=== PATIENT | male | born 1985 | race Caucasian/White ===

== ENCOUNTER 2016-08-21 20:08 | Emergency (ER) | payer BC ==
[~2016-08-21] VITALS: Ht 198.1 cm; Wt 136.1 kg
[2016-08-21 21:26] LABS: Basophils # (auto) 0.1 uL; Basophils % (auto) 0.7 % (0.0-2.0); Eosinophils # (auto) 0.3 uL; Eosinophils % (auto) 3.5 % (0.0-7.0); Hematocrit 47.7 % (41.0-53.0); Hemoglobin 15.8 g/dL (13.5-17.5); Lymphocytes # (auto) 2.9 uL; Mean Corpuscular Hemoglobin 30.3 pg (28.0-32.0); Mean Corpuscular Hgb Conc. 33.1 g/dL (32.0-36.0); Mean Corpuscular Volume 91.6 fL (80.0-100.0); Monocytes # (auto) 0.7 uL; Monocytes % (auto) 7.1 % (0.0-12.0); Neutrophils % (auto) 59.7 % (37.0-80.0); Platelet Count (auto) 350 10^3/uL (140-450)
[2016-08-21 21:29] LABS: Albumin 3.7 g/dL (3.4-5.0); BUN/Creatinine Ratio 10.8; Bilirubin, Total 0.5 mg/dL (0.2-1.0); Calcium 8.7 mg/dL (8.5-10.1); Potassium 3.6 mmol/L (3.5-5.1); Total Protein 7.7 g/dL (6.4-8.2)
[2016-08-21 21:38] LABS: INR 0.96 (0.9-1.15); Prothrombin Time 9.9 sec (9.37-12.3)
[2016-08-22] MEDS ORDERED: ONDANSETRON HCL 4 MG/2 ML VIAL IV ONE (03:00)
[2016-08-22] MEDS ORDERED: HYDROmorphone HCL 2 MG/ML VL IV ONE (03:00)
[2016-08-22] MEDS ORDERED: metroNIDAZOLE 500 MG TAB PO ONE (03:00)
[2016-08-22 03:53] LABS: Urine RBC None Seen /hpf (0 - 3)
[2016-08-22 04:04] LABS: Urine Bilirubin Negative (Negative); Urine Blood Negative /uL (Negative); Urine Color Yellow (Yellow); Urine Glucose Normal (Normal); Urine Ketone Negative (Negative); Urine Mucus FEW (None Seen); Urine Nitrite Negative (Negative); Urine Urobilinogen Normal (Negative); Urine pH 5.5 (5.0-8.0)
[2016-08-22 04:13] VITALS: BP 89/43
== END 2016-08-22 04:56 | disposition home or self-care (01) ==
LOC: ER 20:15
DX: K50.90 Crohn's disease, unspecified, without complications (principal); K76.0 Fatty (change of) liver, not elsewhere classified
CPT/HCPCS: 36415; 71010; 74176; 80053; 81001; 82150; 83690; 84484; 85025; 85610; 85730; 93005; 96374; 96375; 99285; G0434; J1170; J2405

== ENCOUNTER 2019-01-28 19:02 | Inpatient (IN) | payer BC ==
[~2019-01-28] VITALS: Ht 198.1 cm; Wt 133.4 kg
[2019-01-28] MEDS ORDERED: predniSONE 20 MG TAB PO ONE (23:00)
[2019-01-28] MEDS ORDERED: MORPHINE SULF INJ 2 MG/ML SYRINGE 1ML IV PRN ×2 (23:00)
[2019-01-28] MEDS ORDERED: HYDROcodone-ACET 5/325MG TAB PO PRN (23:00)
[2019-01-28] MEDS ORDERED: PANTOPRAZOLE 40 MG TAB PO ONE (23:00)
[2019-01-28] MEDS ORDERED: NITROGLYCERIN 0.4 MG SL TAB SL PRN (23:00)
[2019-01-28 23:22] VITALS: BP 133/85
[2019-01-28] MEDS: SODIUM CHLORIDE 0.9% 1,000 ML IV SCH (23:49)
[2019-01-28] MEDS: ONDANSETRON HCL 4 MG/2 ML VIAL IV PRN (23:58)
[2019-01-29 05:08] VITALS: BP 98/38
[2019-01-29 07:01] LABS: Albumin 3.8 g/dL (3.4-5.0); Calcium 9.1 mg/dL (8.5-10.1); Potassium 4.5 mmol/L (3.5-5.1)
[2019-01-29 07:02] LABS: INR 0.95 (0.9-1.15); Partial Thromboplastin Time 25.8 sec (23.64-32.05)
[2019-01-29 07:05] LABS: BUN/Creatinine Ratio 15.6; Basophils # (auto) 0 uL; Basophils % (auto) 0.1 % (0.0-2.0); Bilirubin, Total 1.5 mg/dL (0.2-1.0); Eosinophils # (auto) 0 uL; Eosinophils % (auto) 0.1 % (0.0-7.0); Hematocrit 45.4 % (41.0-53.0); Hemoglobin 15.5 g/dL (13.5-17.5); Lymphocytes # (auto) 0.7 uL; Lymphocytes % (auto) 7.2 % (10.0-50.0); Mean Corpuscular Hemoglobin 32.1 pg (28.0-32.0); Mean Corpuscular Hgb Conc. 34.2 g/dL (32.0-36.0); Mean Corpuscular Volume 93.9 fL (80.0-100.0); Monocytes # (auto) 0.1 uL; Monocytes % (auto) 0.9 % (0.0-12.0); Neutrophils # (auto) 9.5 uL; Neutrophils % (auto) 91.7 % (37.0-80.0); Platelet Count (auto) 258 10^3/uL (140-450); Red Blood Cells 4.83 10^6/uL (4.5-5.90); Red Cell Distribution Width 12.9 % (11.8-14.3); Total Protein 7.5 g/dL (6.4-8.2); White Blood Cell 10.3 10^3/uL (4.4-10.8)
[2019-01-29] MEDS ORDERED: GASTROGRAFIN 120 ML SOL ONE (08:00)
[2019-01-29 09:00] VITALS: BP 128/78
[2019-01-29] MEDS ORDERED: predniSONE 20 MG TAB PO SCH (10:00)
[2019-01-29] MEDS ORDERED: PANTOPRAZOLE 40 MG TAB PO SCH (10:00)
[2019-01-29] MEDS: ONDANSETRON HCL 4 MG/2 ML VIAL IV PRN (10:56)
[2019-01-29] MEDS: SODIUM CHLORIDE 0.9% 1,000 ML IV SCH ×2 (11:02→19:00)
[2019-01-29] MEDS ORDERED: MEPERIDINE HCL (50 MG/ML) 1 ML VIAL IM PRN (12:15)
[2019-01-29] MEDS: DICYCLOMINE HCL 10 MG CAP PO SCH ×2 (12:46→19:35)
[2019-01-29 12:48] VITALS: BP 119/68
[2019-01-29 17:00] VITALS: BP 123/66
[2019-01-29 20:03] VITALS: BP 123/66
== END 2019-01-29 20:53 | disposition home or self-care (01) | DRG 386 ==
LOC: TELE-WESTW 22:25
PROVIDERS: ADMIT Internal Medicine; ATTEND Internal Medicine
DX: K50.10 Crohn's disease of large intestine without complications (principal); N17.9 Acute kidney failure, unspecified; K62.5 Hemorrhage of anus and rectum; J45.909 Unspecified asthma, uncomplicated; Z80.8 Family history of malignant neoplasm of other organs or systems; Z83.3 Family history of diabetes mellitus; Z79.899 Other long term (current) drug therapy
CPT/HCPCS: 36415; 74250; 80053; 85025; 85048; 85610; 85652; 85730; 87045; 87493; 87899; G0378; J2405

== ENCOUNTER 2019-04-24 13:19 | Inpatient (IN) | payer BC ==
[~2019-04-24] VITALS: Ht 195.6 cm; Wt 127.0 kg
[2019-04-24] MEDS ORDERED: SODIUM CHLORIDE 0.9% 1,000 ML IVB ONE (13:28)
[2019-04-24] MEDS ORDERED: ONDANSETRON HCL 4 MG/2 ML VIAL IV ONE (13:30)
[2019-04-24] MEDS ORDERED: MORPHINE SULF INJ 2 MG/ML SYRINGE 1ML IV ONE ×2 (13:30→14:00)
[2019-04-24] MEDS ORDERED: PANTOPRAZOLE 40 MG/10 ML VIAL INJ IV ONE (13:30)
[2019-04-24 13:48] LABS: Basophils # (auto) 0.1 uL; Basophils % (auto) 1.2 % (0.0-2.0); Eosinophils # (auto) 0.8 uL; Eosinophils % (auto) 7.9 % (0.0-7.0); Hematocrit 44.1 % (41.0-53.0); Hemoglobin 15.9 g/dL (13.5-17.5); Lymphocytes # (auto) 2.6 uL; Lymphocytes % (auto) 27.9 % (10.0-50.0); Mean Corpuscular Hgb Conc. 36.1 g/dL (32.0-36.0); Mean Corpuscular Volume 91.3 fL (80.0-100.0); Monocytes # (auto) 0.6 uL; Monocytes % (auto) 6.3 % (0.0-12.0); Neutrophils # (auto) 5.4 uL; Neutrophils % (auto) 56.7 % (37.0-80.0); Nucleated Red Blood Cells % 0.1 %; Platelet Count (auto) 280 10^3/uL (140-450); Red Blood Cells 4.83 10^6/uL (4.5-5.90); Red Cell Distribution Width 12.9 % (11.8-14.3); White Blood Cell 9.5 10^3/uL (4.4-10.8)
[2019-04-24 14:04] LABS: Albumin 3.9 g/dL (3.4-5.0); Calcium 8.6 mg/dL (8.5-10.1); Magnesium 2.3 mg/dL (1.6-2.6)
[2019-04-24] MEDS ORDERED: HYDROmorphone HCL 2 MG/ML VL ONE (14:09)
[2019-04-24 14:13] LABS: INR < 0.93 (0.9-1.15); Partial Thromboplastin Time 24.5 sec (23.64-32.05)
[2019-04-24 14:14] LABS: Bilirubin, Total 0.8 mg/dL (0.2-1.0); Total Protein 7.7 g/dL (6.4-8.2)
[2019-04-24] MEDS ORDERED: HYDROmorphone HCL 2 MG/ML VL IV ONE (14:15)
[2019-04-24 15:53] LABS: Urine WBC None Seen /hpf (0 - 3)
[2019-04-24 16:05] LABS: Urine Bacteria NONE SEEN /hpf (None Seen); Urine Blood Negative /uL (Negative); Urine Specific Gravity 1.013 (1.001-1.035)
[2019-04-24] MEDS ORDERED: MORPHINE SULF INJ 2 MG/ML SYRINGE 1ML IV PRN (17:15)
[2019-04-24] MEDS ORDERED: NITROGLYCERIN 0.4 MG SL TAB SL PRN (17:15)
[2019-04-24] MEDS ORDERED: methylPREDNISolone SOD SUCC 125 MG/2 ML VL IV SCH (17:15)
[2019-04-24] MEDS: HYDROmorphone HCL 2 MG/ML VL IV PRN ×2 (17:59→22:15)
[2019-04-24] MEDS: ONDANSETRON HCL 4 MG/2 ML VIAL IV PRN ×2 (17:59→23:02)
[2019-04-24 18:30] VITALS: BP 124/98
[2019-04-24] MEDS: SODIUM CHLORIDE 0.9% 1,000 ML IV SCH (18:30)
--- NOTE | 2019-04-24 18:30 | NUR ---
MS admit from ER JONELLE CENTENO admitted to tele/MS after SBAR received. Patient oriented to Isaura Hoskins, primary RN, unit, room, bed, and unit policies regarding patient care and visiting hours. Patient weighed by bedscale and encouraged to call if they need something. All questions and concerns addressed, patient verbalized understanding. IV fluids started as ordered. Patient denies need for pain meds at this time states tolerable pain level. Patient denies n/v. Will cont to monitor
[2019-04-24] MEDS: FAMOTIDINE (10MG/ML) 2ML VL IV SCH (21:31)
[2019-04-24] MEDS ORDERED: DICY10CA12 PO (21:47)
[2019-04-24 22:00] VITALS: BP 126/75
[2019-04-25] MEDS: HYDROmorphone HCL 2 MG/ML VL IV PRN ×2 (02:10→10:58)
[2019-04-25 05:00] VITALS: BP 125/70
[2019-04-25] MEDS: SODIUM CHLORIDE 0.9% 1,000 ML IV SCH ×3 (05:03→23:56)
[2019-04-25 06:10] LABS: Basophils # (auto) 0 uL; Basophils % (auto) 0.1 % (0.0-2.0); Eosinophils # (auto) 0 uL; Hematocrit 44.2 % (41.0-53.0); Hemoglobin 15.3 g/dL (13.5-17.5); Lymphocytes # (auto) 0.8 uL; Lymphocytes % (auto) 7.9 % (10.0-50.0); Mean Corpuscular Hemoglobin 32.8 pg (28.0-32.0); Mean Corpuscular Hgb Conc. 34.6 g/dL (32.0-36.0); Mean Corpuscular Volume 94.8 fL (80.0-100.0); Monocytes # (auto) 0.1 uL; Platelet Count (auto) 257 10^3/uL (140-450); Red Blood Cells 4.66 10^6/uL (4.5-5.90); Red Cell Distribution Width 12.5 % (11.8-14.3); White Blood Cell 9.9 10^3/uL (4.4-10.8)
[2019-04-25 06:23] LABS: Albumin 3.5 g/dL (3.4-5.0); BUN/Creatinine Ratio 15.2; Calcium 8.7 mg/dL (8.5-10.1); Potassium 4.3 mmol/L (3.5-5.1)
[2019-04-25 06:26] LABS: Bilirubin, Total 0.9 mg/dL (0.2-1.0); Total Protein 7.2 g/dL (6.4-8.2)
--- NOTE | 2019-04-25 08:00 | NUR ---
Opening Shift Note Assumed care of patient, awake, alert and oriented X4. No S/S of distress/SOB or pain. IV to left hand, 18 gauge, patent and infusing 0.9% NS @ 100 ml/hr. Instructed on POC and to call for assist PRN, verbalized understanding. Bed locked, n lowest position, call light within reach, will continue to monitor for changes Q1hr and PRN.
[2019-04-25 09:00] VITALS: BP 121/74
[2019-04-25] MEDS ORDERED: LACTULOSE 20Gm/30ML SOLN PO PRN (10:30)
[2019-04-25] MEDS: FAMOTIDINE (10MG/ML) 2ML VL IV SCH ×2 (10:58→21:51)
--- NOTE | 2019-04-25 11:28 | NUR ---
GI Dr Quezada at bedside for GI follow up. New orders received and followed through. Patient updated on plan of care, verbalized understanding.
[2019-04-25 13:00] VITALS: BP 141/88
[2019-04-25 17:00] VITALS: BP 120/66
--- NOTE | 2019-04-25 17:53 | NUR ---
ROUNDS Dr Dustin Romero at bedside for rounds, new orders received and followed through. Patient updated on plan of care, verbalized understanding.
[2019-04-25] MEDS ORDERED: HYDROcodone-ACET 5/325MG TAB PO PRN (18:00)
[2019-04-25] MEDS ORDERED: HYDROCORTISONE SOD SUCC 100 MG/2ML INJ VIAL IV ONE (18:00)
[2019-04-25] MEDS ORDERED: HYDROmorphone HCL 2 MG/ML VL IV PRN (18:00)
--- NOTE | 2019-04-25 19:11 | NUR ---
Care endorsed to ASIF Zurita, night nurse.
[2019-04-25] MEDS: HYDROCORTISONE SOD SUCC 100 MG/2ML INJ VIAL IV SCH (21:51)
[2019-04-25 22:21] VITALS: BP 146/98
[2019-04-26 05:23] VITALS: BP 120/56
--- NOTE | 2019-04-26 08:00 | NUR ---
Opening Shift Note Assumed care of patient, awake, alert and oriented X4. No S/S of distress/SOB, complains abdominal pain, /, will medicate with prescribed pain medication. IV to left hand, 18 gauge, patent and infusing 0.9% NS @ 100 ml/hr. Instructed on POC and to call for assist PRN, verbalized understanding. Bed locked, n lowest position, call light within reach, will continue to monitor for changes Q1hr and PRN.
[2019-04-26] MEDS: ONDANSETRON HCL 4 MG/2 ML VIAL IV PRN (08:33)
[2019-04-26 08:42] VITALS: BP 138/86
[2019-04-26] MEDS: HYDROCORTISONE SOD SUCC 100 MG/2ML INJ VIAL IV SCH (10:41)
[2019-04-26] MEDS: FAMOTIDINE (10MG/ML) 2ML VL IV SCH (10:41)
--- NOTE | 2019-04-26 12:19 | NUR ---
ROUNDS Dr Dustin Romero at bedside for rounds, new orders received and followed through. Patient updated on plan of care, verbalized understanding.
[2019-04-26] MEDS ORDERED: HYDR-4833 PO (12:44)
[2019-04-26] MEDS ORDERED: PRE5T PO (12:44)
[2019-04-26 13:00] VITALS: BP 142/70
--- NOTE | 2019-04-26 14:47 | NUR ---
D/C Planning Per consult for home health safety evaluation. Contacted [facility] ph:) Fax:) Faxed medical records. Per Darcie from [facility] Pt has been accepted and service to start within 48 hrs upon d/c day. Contacted [facility] ph:) Fax:) spoke to MAURICIO Sun. Advised MAURICIO Sun to provided authorization to [facility]. Addendum: 04/26/19 at 1452 by SUZY DOMINGUEZ Amended: Links added.
--- NOTE | 2019-04-26 15:50 | NUR ---
d/c Planning Authorization # for [facility] is [id number].
== END 2019-04-26 14:45 | disposition home health service (06) | DRG 387 ==
LOC: ER 13:19 → TELE 13:20 → TELE-WESTW 18:06 → WEST WING 23:13
PROVIDERS: ADMIT Nurse Practitioner Acute Care; ATTEND Internal Medicine
DX: K51.911 Ulcerative colitis, unspecified with rectal bleeding (principal); E66.9 Obesity, unspecified; Z68.33 Body mass index [BMI] 33.0-33.9, adult; G89.29 Other chronic pain; K59.00 Constipation, unspecified; K76.0 Fatty (change of) liver, not elsewhere classified; Z82.49 Family history of ischemic heart disease and other diseases of the circulatory system; Z83.3 Family history of diabetes mellitus; Z85.038 Personal history of other malignant neoplasm of large intestine; Z90.49 Acquired absence of other specified parts of digestive tract
CPT/HCPCS: 36415; 74176; 80053; 81001; 82150; 83690; 83735; 85025; 85610; 85730; 94761; 96361; 96374; 96375; C9113; G0378; J2405; J3490

== ENCOUNTER 2024-06-13 18:20 | Inpatient (IN) | payer BC ==
[~2024-06-13] VITALS: Ht 198.1 cm; Wt 91.2 kg
[~2024-06-13 18:20] MED LIST: BUDE0.5S PO; DICY-89 PO; HYDR-4833 PO; MESA1.2T PO; PANT40TA2 PO; PRE5T PO
--- NOTE | 2024-06-13 18:37 | ED.PDOC ---
GI ASSESSMENT HPI Comments 39-year-old male who came to ER for GI bleed. Patient does have history of Crohn's disease. States last flare-up was 2 years ago. Since last night, patient has been experiencing left lower quadrant abdominal pain, radiating down his left leg, associated with nausea, vomiting (4-5x), and bright red rectal bleeding. Patient complaining of fever, headaches, generalized muscle and joint pains, right inguinal pain. Patient feels like he is having another flare up. Chief Complaint: GI bleed Time Seen by MD: 18:37 Primary Care Provider: REY Reviewed Notes: Nurses Notes Allergies: Coded Allergies: NO KNOWN ALLERGIES (Unverified , 03/12/15) Home Meds Active Scripts Budesonide (Inhalation) (Budesonide) 0.5 Mg/2 Ml Heather, 9 MG PO DAILY, #30 ML Prov:EDMUNDO MICHAEL MD 04/08/22 Pantoprazole Sodium Sesquihydr (Protonix) 40 Mg Tab, 40 MG PO DAILY, #30 TAB Prov:MASON BHAT MD 03/09/22 Mesalamine (Lialda) 1.2 Gm Tab, 2 TAB PO DAILY, #30 TAB Prov:MASON BHAT MD 03/09/22 Hydrocodone-Acetaminophen ([place] 5/325MG) 1 Tab Tb, 2 TAB PO Q4HP PRN, #24 TAB Prov:FLORA MICHAEL MD 04/26/19 Prednisone (PREDNISONE) 5 Mg Tb, 40 MG PO DAILY, #168 TAB Patient to take 40mg PO daily. Can substitute with 40mg tablet for 21 day supply. Prov:FLORA MICHAEL MD 04/26/19 Reported Medications Dicyclomine Hcl (Dicyclomine Hcl) 10 Mg Cap, PO Q4HP PRN for PAIN SCALE 1 THRU 6 for 30 Days, MG 04/24/19 Information Source: Patient Mode of Arrival: Ambulatory Timing: Hours Duration: Since onset Prehospital treatment: None Quality: Cramping, Sharp Vomitus: Watery Stool: Blood Streaked Severity: Moderate Recent: None Recent Hx of: Abdominal Surgery, Other (Crohn's disease) Pain Location: RLQ, LLQ Modifying Factors: Nothing Associated sign and symptoms: Nausea, Vomiting, Hematochezia, Abdominal Pain, Blood in Stool Past Medical History Past Medical History (Other): Crohn's disease Surgical History: Appendectomy Family History Family History: Family hx of DM, Family hx of HTN Social History Smoker: Non-Smoker Alcohol: Denies ETOH Use Drugs: Denies Drug Use Lives In: Home Constitutional: reports: malaise; denies: chills, diaphoresis, fatigue, fever, sweats, weakness, others EENTM: denies: blurred vision, double vision, ear bleeding, ear discharge, ear drainage, ear pain, ear ringing, eye pain, eye redness, hearing loss, mouth pain, mouth swelling, nasal discharge, nose bleeding, nose congestion, nose pain, photophobia, tearing, throat pain, throat swelling, voice changes, others Respiratory: denies: cough, hemoptysis, orthopnea, SOB at rest, shortness of breath, SOB with excertion, stridor, wheezing, others Cardiovascular: denies: chest pain, dizzy spells, diaphoresis, Dyspnea on exertion, edema, irregular heart beat, left arm pain, lightheadedness, palpitations, PND, syncope, others Gastrointestinal: reports: abdominal pain, blood streaked bowels, nausea, rectal bleeding, vomiting; denies: abdomen distended, constipated, diarrhea, dysphagia, difficulty swallowing, hematemesis, melena, poor appetite, poor fluid intake, rectal pain, others Genitourinary: denies: burning, dysuria, flank pain, frequency, hematuria, incontinence, penile discharge, penile sore, pain, testicle pain, testicle swelling, urgency, others Neurological: reports: headache; denies: dizziness, fainting, left sided numbness, left sided weakness, numbness, paresthesia, pre-existing deficit, right sided numbness, right sided weakness, seizure, speech problems, tingling, tremors, weakness, others Musculoskeletal: reports: muscle pain (Leg pain); denies: back pain, gout, joint pain, joint swelling, muscle stiffness, neck pain, others Integumetry: denies: bruises, change in color, change in hair/nails, dryness, laceration, lesions, lumps, rash, wounds, others Allergic/Immunocompromised: denies: Difficulty Healing, Frequent Infections, Hives, Itching, others Hematologic/Lymphatic: denies: anemia, blood clots, easy bleeding, easy bruising, swollen glands, others Endocrine: denies: excessive hunger, excessive sweating, excessive thirst, excessive urination, flushing, intolerance to cold, intolerance to heat, unexplained weight gain, unexplained weight loss, others Psychiatric: denies: anxiety, bipolar disorder, depression, hopeless, panic disorder, schizophrenia, sleepless, suicidal, others Physical Exam Exam Comments febrile, 101.6 General Appearance: Moderate Distress, Normal HEENT: Normal ENT Inspection, Pharynx Normal, TMs Normal Neck: Full Range of Motion, Non-Tender, Normal, Normal Inspection Respiratory: Chest Non-Tender, Lungs Clear, No Accessory Muscle Use, No Respiratory Distress, Normal Breath Sounds Cardiovascular: No Edema, No JVD, No Murmur, No Gallop, Normal Peripheral Pulses, Regular Rate/Rhythm Breast Exam: Deferred Gastrointestinal: Diffuse, Normal Bowel Sounds, Soft, Tenderness Genitalia: Deferred Pelvic: Deferred Rectal: Deferred Extremities: No calf tenderness, Normal capillary refill, Normal inspection, Normal range of motion, Non-tender, No pedal edema Musculoskeletal : Apperance: Normal Neurologic: Alert, applications programmer II-XII nml as Tested, No Motor Deficits, Normal Affect, Normal Mood, No Sensory Deficits Cerebellar Function: Normal Reflexes: Normal Skin: Dry, Normal Color, Warm Lymphatic: No Adenopathy Was a procedure done? Was a procedure done?: No GI differential Dx Differential Diagnosis: Diverticular disease, Gastritis/PUD, Gastroenteritis, GI hemorrhage, Pancreatitis, UTI, Anemia, Other (Crohn's disease) X-Ray, Labs, Meds, VS Vital Signs Date Time Temp Pulse Resp B/P (MAP) Pulse Ox O2 Delivery O2 Flow Rate FiO2 06/13/24 18:36 101.5 133 18 142/95 (111) 95 Lab Test 06/13/24 18:54 Range/Units White Blood Count 7.6 4.4-10.8 10^3/uL Red Blood Count 5.02 4.5-5.90 10^6/uL Hemoglobin 16.1 13.5-17.5 g/dL Hematocrit 47.0 41.0-53.0 % Mean Corpuscular Volume 93.6 80.0-100.0 fL Mean Corpuscular Hemoglobin 32.1 H 28.0-32.0 pg Mean Corpuscular Hemoglobin Concent 34.3 32.0-36.0 g/dL Red Cell Distribution Width 13.0 11.8-14.3 % Platelet Count 272 140-450 10^3/uL Mean Platelet Volume 7.6 6.9-10.8 fL Neutrophils (%) (Auto) 72.9 37.0-80.0 % Lymphocytes (%) (Auto) 14.7 10.0-50.0 % Monocytes (%) (Auto) 7.1 0.0-12.0 % Eosinophils (%) (Auto) 5.0 0.0-7.0 % Basophils (%) (Auto) 0.3 0.0-2.0 % Neutrophils # (Auto) 5.6 1.6-8.6 10 ^3/uL Lymphocytes # (Auto) 1.1 0.4-5.4 10 ^3/uL Monocytes # (Auto) 0.5 0-1.3 10 ^3/uL Eosinophils # (Auto) 0.4 0-0.8 10 ^3/uL Basophils # (Auto) 0 0-0.2 10 ^3/uL Nucleated Red Blood Cells 0.1 % Prothrombin Time 11.1 9.3-11.8 sec Prothrombin Time INR 1.05 0.9-1.15 Activated Partial Thromboplast Time 28.4 24.5-34.5 SEC Sodium Level 137 136-145 mmol/L Potassium Level 3.9 3.5-5.1 mmol/L Chloride Level 105 98-107 mmol/L Carbon Dioxide Level 25 20-31 mmol/L Anion Gap 7 5-15 Blood Urea Nitrogen 14 9-23 mg/dL Creatinine 1.10 0.700-1.30 mg/dL Glomerular Filtration Rate Calc 88 >90 mL/min BUN/Creatinine Ratio 12.7 10.0-20.0 Serum Glucose 99 74-106 mg/dL Lactic Acid Level 1.1 0.4-2.0 mmol/L Calcium Level 9.6 8.7-10.4 mg/dL Total Bilirubin 2.3 H 0.2-1.0 mg/dL Aspartate Amino Transferase (AST) 15 13-40 U/L Alanine Aminotransferase (ALT) 27 7-40 U/L Alkaline Phosphatase 63 46-116 U/L Total Protein 7.4 5.7-8.2 g/dL Albumin 4.5 3.2-4.8 g/dL Lipase 34 12-53 U/L Time of 1ST Reevaluation: 18:33 Reevaluation 1ST: Unchanged Patient Education/Counseling: Diagnosis, Treatment Family Education/Counseling: No Family Present Departure 1 Departure Time of Disposition: 22:07 Impression: Primary Impression: GI bleed Additional Impression: Crohn's disease Disposition: ADMITTED INPATIENT Condition: Guarded Critical Care Note Critical Care Time?: Yes (35 min-critical care time only) Stability Stability form required: No Heart Score Heart Score: Heart Score Response (Comments) Value History N/A 0 EKG N/A 0 Age N/A 0 Risk Factors N/A 0 Troponin N/A 0 Total 0 I personally scribed for MICHELLE ESCOBEDO MD ([email or web address]) on 06/13/24 at 18:37. Electronically submitted by Santos Calvillo ([facility]). I personally scribed for MICHELLE ESCOBEDO MD ([email or web address]) on 06/13/24 at 22:07. Electronically submitted by Santos Calvillo ([email or web address]). MICHELLE ESCOBEDO MD Jun 13, 2024 18:37
[2024-06-13 19:33] LABS: Basophils # (auto) 0 10 ^3/uL (0-0.2); Basophils % (auto) 0.3 % (0.0-2.0); Eosinophils # (auto) 0.4 10 ^3/uL (0-0.8); Hemoglobin 16.1 g/dL (13.5-17.5); Lymphocytes # (auto) 1.1 10 ^3/uL (0.4-5.4); Lymphocytes % (auto) 14.7 % (10.0-50.0); Mean Corpuscular Hemoglobin 32.1 pg (28.0-32.0); Mean Corpuscular Hgb Conc. 34.3 g/dL (32.0-36.0); Mean Corpuscular Volume 93.6 fL (80.0-100.0); Monocytes # (auto) 0.5 10 ^3/uL (0-1.3); Monocytes % (auto) 7.1 % (0.0-12.0); Neutrophils # (auto) 5.6 10 ^3/uL (1.6-8.6); Neutrophils % (auto) 72.9 % (37.0-80.0); Nucleated Red Blood Cells % 0.1 %; Platelet Count (auto) 272 10^3/uL (140-450); Red Blood Cells 5.02 10^6/uL (4.5-5.90); White Blood Cell 7.6 10^3/uL (4.4-10.8)
[2024-06-13 19:52] LABS: Alanine Aminotransferase 27 U/L (7-40); Albumin 4.5 g/dL (3.2-4.8); Alkaline Phosphatase 63 U/L (46-116); Anion Gap 7 (5-15); Aspartate Aminotransferase 15 U/L (13-40); BUN/Creatinine Ratio 12.7 (10.0-20.0); Bilirubin, Total 2.3 mg/dL (0.2-1.0); Blood Urea Nitrogen 14 mg/dL (9-23); Calcium 9.6 mg/dL (8.7-10.4); Carbon Dioxide 25 mmol/L (20-31); Chloride 105 mmol/L (98-107); Glucose 99 mg/dL (74-106); Potassium 3.9 mmol/L (3.5-5.1); Sodium 137 mmol/L (136-145); Total Protein 7.4 g/dL (5.7-8.2)
[2024-06-13 20:07] LABS: INR 1.05 (0.9-1.15); Partial Thromboplastin Time 28.4 SEC (24.5-34.5); Prothrombin Time 11.1 sec (9.3-11.8)
[2024-06-13 20:10] LABS: Lipase 34 U/L (12-53)
[2024-06-13] MEDS: SODIUM CHLORIDE 0.9% 1,000 ML IV SCH (21:30)
[2024-06-13] MEDS ORDERED: NITROGLYCERIN 0.4 MG SL TAB SL PRN (21:30)
[2024-06-13] MEDS ORDERED: MORPHINE SULFATE INJ 2 MG/ml SYRG IV PRN (21:30)
[2024-06-13] MEDS ORDERED: ACETAMINOPHEN 325 MG TAB PO PRN (21:30)
[2024-06-13] MEDS: POTASSIUM CHL 20MEQ/100ML 100 ML IV SCH (21:30)
[2024-06-13] MEDS: SODIUM CHLORIDE 0.9% 1,000 ML IVB ONE (21:30)
[2024-06-13 22:23] LABS: Rapid Influenza A Negative (Negative); Rapid Influenza B Negative (Negative)
[2024-06-13 22:24] LABS: COVID19 ANTIGEN SOFIA FIA NEGATIVE (NEGATIVE)
[2024-06-13] MEDS ORDERED: IOHEXOL 300 MG/ML 100ML BOTTLE IJ ONE (23:43)
[2024-06-14] MEDS: ONDANSETRON HCL 4 MG/2 ML VIAL IV ONE (00:05)
[2024-06-14] MEDS: ACETAMINOPHEN 500 MG TAB PO ONE (00:06)
[2024-06-14] MEDS ORDERED: methylPREDNISolone SOD SUCC 40 MG/ML VL IV ONE (00:30)
[2024-06-14] MEDS: MORPHINE SULFATE 4 MG/ML SYR/VIAL IV ONE (01:06)
--- NOTE | 2024-06-14 02:03 | DVH ---
CLINICAL HISTORY: abd pain, fever, h/o chrons TECHNIQUE: CT of the abdomen and pelvis was performed with intravenous contrast. This exam was perfor med according to our departmental dose optimization program. Up-to-date CT equipment and radiation do se reduction techniques are utilized as appropriate. [Radimetrics Exposure Report] WID: COMPARISON: None FINDINGS: Lower Thorax: Unremarkable. Liver and Biliary system: Mild hepatomegaly measuring 19 cm craniocaudal with diffuse hepatic steatos is. Otherwise unremarkable. Spleen: Unremarkable. Adrenal Glands and Kidneys: Unremarkable. Pancreas and Retroperitoneum: Unremarkable. Aorta and Major Vessels: Aortoiliac vessels are patent and normal caliber. Bowel, Mesentery and Peritoneal space: The small and large bowel loops are normal in caliber there ar e scattered fluid-filled small bowel loops and proximal large bowel. Mucosal enhancement of scattered small bowel loops and the duodenum. There is no free air or loculated fluid collection. Pelvis: Mild prostatomegaly. Otherwise unremarkable pelvis. Abdominal wall and Osseous Structures: Small fat containing left inguinal hernia. There is a small in tramuscular lipoma in the right piriformis muscle. Multilevel lower thoracic and lumbar spondylosis. No destructive osseous lesion. IMPRESSION: 1. Scattered fluid-filled small and proximal large bowel loops likely related to enterocolitis. 2. Mucosal enhancement of scattered small bowel loops and the duodenal likely infectious or inflammat ory bowel disease. 3. Mild prostatomegaly. 4. Mild hepatomegaly with diffuse hepatic steatosis.
--- NOTE | 2024-06-14 03:52 | DVHHPRES ---
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 He presented to the emergency department with a chief complaint of severe lower abdominal pain and bloody diarrhea that began approximately 36 hours prior to arrival. The abdominal pain is localized to the left and right lower quadrants described as sharp constant and rated as 10/10 intensity. The pain radiates to the left leg which worsens with the standing and improves when bending over. He reports associated nausea and vomiting as well as bright red diarrhea that was initially watery and blood tinged but has since progressed to spotty bleeding. On examination a rectal exam did not reveal active bleeding. The patient also endorses fever measure at 101.5 F at presentation and notes that the abdominal pain and diarrhea are the most severe symptoms. He denies recent use of alcohol smoking vaping or illicit drugs. His last Crohn flare-up occurred 2 years ago and did not require hospitalization. He lives with his grandmother and son. Family History: None Smoke: No ALCOHOL: none Drugs: None Lives: with Family Review of Systems Review of Systems Constitutional: Yes: Fevers, weakness, malaise. Eyes: No: Pain, Vision change, Conjunctivae inflammation, Eyelid inflammation, Other, Redness ENT: No: Ear pain, Ear discharge, Nose pain, Nose discharge, Nose congestion, Mouth pain, Mouth swelling, Throat pain, Throat swelling, Other Respiratory: No Wheezing, Hemoptysis, Pleuritic Pain, Sputum, Wheezing, Other Cardiovascular: No: Chest Pain, Palpitations, Orthopnea, Paroxysmal Noc. Dyspnea, Edema, Lt Headedness, Other Gastrointestinal: Yes: Diarrhea, abdominal pain, hematochezia No: Nausea, Vo miting, Constipation, Melena, Other Musculoskeletal: No: other, neck pain, shoulder pain, arm pain, back pain, hand pain, leg pain, foot pain Neurological:; No: Weakness, Numbness, Incoordination, Change in speech, Confusion, Seizures Allergies: Coded Allergies: NO KNOWN ALLERGIES (Unverified , 03/12/15) Medications Current Medications Medications Dose Ordered Sig/Kathie Route Start Time Stop Time Status Last Admin Dose Admin Sodium Chloride 1,000 ml @ 60 mls/hr [id number] IV 06/13/24 21:30 Ondansetron HCl 4 mg Q4HP PRN IV 06/13/24 21:30 Acetaminophen 650 mg Q6HP PRN PO 06/13/24 21:30 Morphine Sulfate 2 mg Q4HPRN PRN IV 06/13/24 21:30 Nitroglycerin 0.4 mg Q5MINP PRN SL 06/13/24 21:30 Morphine Sulfate 2 mg Q30M PRN IV 06/13/24 21:30 Prednisone 40 mg DAILY PO 06/14/24 10:00 Pantoprazole Sodium 40 mg DAILY IV 06/14/24 10:00 Piperacillin Sod/ Tazobactam Sod 100 ml @ 25 mls/hr Q6HR IV 06/14/24 06:00 Exam Vital Signs Vital Signs Date Time Temp Pulse Resp B/P (MAP) Pulse Ox O2 Delivery O2 Flow Rate FiO2 06/14/24 01:06 80 18 146/67 06/14/24 00:06 98.1 06/13/24 21:40 96 Exam Examination General Appearance: Alert, Oriented X3, Cooperative, No acute distress HEENT: EOMI Respiratory: Clear to auscultation, Normal air movement Cardiovascular: Regular rate, Normal S1, Normal S2 Abdominal: Normal bowel sounds Extremities: No cyanosis, No edema, Normal pulses, No tenderness/swelling Skin: No rashes, No breakdown Neuro: Normal gait, Normal speech, Strength at 5/5 X4 ext, Normal tone, Sensation intact, Cranial nerves 3-12 NL, Reflexes 2+ Psych/Mental Status: Mental status NL, Mood NL Labs/Xrays Labs Test 06/13/24 21:37 06/13/24 18:54 Range/Units Influenza Type A Antigen Negative Negative Influenza Type B Antigen Negative Negative SARS-CoV-2 Antigen (Rapid) Negative NEGATIVE White Blood Count 7.6 4.4-10.8 10^3/uL Red Blood Count 5.02 4.5-5.90 10^6/uL Hemoglobin 16.1 13.5-17.5 g/dL Hematocrit 47.0 41.0-53.0 % Mean Corpuscular Volume 93.6 80.0-100.0 fL Mean Corpuscular Hemoglobin 32.1 H 28.0-32.0 pg Mean Corpuscular Hemoglobin Concent 34.3 32.0-36.0 g/dL Red Cell Distribution Width 13.0 11.8-14.3 % Platelet Count 272 140-450 10^3/uL Mean Platelet Volume 7.6 6.9-10.8 fL Neutrophils (%) (Auto) 72.9 37.0-80.0 % Lymphocytes (%) (Auto) 14.7 10.0-50.0 % Monocytes (%) (Auto) 7.1 0.0-12.0 % Eosinophils (%) (Auto) 5.0 0.0-7.0 % Basophils (%) (Auto) 0.3 0.0-2.0 % Neutrophils # (Auto) 5.6 1.6-8.6 10 ^3/uL Lymphocytes # (Auto) 1.1 0.4-5.4 10 ^3/uL Monocytes # (Auto) 0.5 0-1.3 10 ^3/uL Eosinophils # (Auto) 0.4 0-0.8 10 ^3/uL Basophils # (Auto) 0 0-0.2 10 ^3/uL Nucleated Red Blood Cells 0.1 % Prothrombin Time 11.1 9.3-11.8 sec Prothrombin Time INR 1.05 0.9-1.15 Activated Partial Thromboplast Time 28.4 24.5-34.5 SEC Sodium Level 137 136-145 mmol/L Potassium Level 3.9 3.5-5.1 mmol/L Chloride Level 105 98-107 mmol/L Carbon Dioxide Level 25 20-31 mmol/L Anion Gap 7 5-15 Blood Urea Nitrogen 14 9-23 mg/dL Creatinine 1.10 0.700-1.30 mg/dL Glomerular Filtration Rate Calc 88 >90 mL/min BUN/Creatinine Ratio 12.7 10.0-20.0 Serum Glucose 99 74-106 mg/dL Lactic Acid Level 1.1 0.4-2.0 mmol/L Calcium Level 9.6 8.7-10.4 mg/dL Total Bilirubin 2.3 H 0.2-1.0 mg/dL Aspartate Amino Transferase (AST) 15 13-40 U/L Alanine Aminotransferase (ALT) 27 7-40 U/L Alkaline Phosphatase 63 46-116 U/L Total Protein 7.4 5.7-8.2 g/dL Albumin 4.5 3.2-4.8 g/dL Lipase 34 12-53 U/L Assessment/Plan Assessment/Plan #Upper GI bleeding likely due to Acute Crohn's disease flare-up -Clostridium difficile testing -GI consult -C-reactive protein -ESR -Prednisone 40 mg p.o. 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 Rodas Close of care discussed with the patient for 39 minutes Code status: Full code Plan discussed with: Patient My Orders Orders - JOSEFINA YOUSIF RESIDENT Procedure Category Date Status Time Admit ADMIT 06/13/24 Transmitted 21:29 Allergies SILAS 06/13/24 In Process 21:29 Code Status CODE 06/13/24 Transmitted 21:29 Sodium Chloride 0.9% PHA 06/13/24 In Process 21:30 Ondansetron Hcl PHA 06/13/24 In Process (Zofran) 21:30 Complete Blood Count LAB 06/14/24 Logged 04:00 Comprehensive LAB 06/14/24 Logged Metabolic Panel 04:00 Npo (Nothing By DIET 06/14/24 Transmitted Mouth) Diet Breakfast Acetaminophen Tablet PHA 06/13/24 In Process (Tylenol Tablet) 21:30 Bedrest With Bathroom [facility] 06/13/24 In Process Privileg 21:29 Morphine Sulfate PHA 06/13/24 In Process Injection 21:30 Nitroglycerin PHA 06/13/24 In Process Sublingual (Ntrostat 21:30 Morphine Sulfate PHA 06/13/24 In Process Injection 21:30 Oxygen By Nasal RT 06/13/24 Transmitted Cannula 21:29 Stat Ekg For Chest [facility] 06/13/24 In Process Pain 21:29 Notify Of Changes [facility] 06/13/24 In Process From Base 21:29 Strength And Conditioning Coach For [facility] 06/13/24 In Process 24 Hours 21:29 Emergency Dysrhythmia [facility] 06/13/24 In Process Protocol 21:29 Rhythm Strips Once [facility] 06/13/24 In Process Every Shift 21:29 C-Reactive Protein LAB 06/14/24 Logged 04:00 Clostridium Difficile [facility] 06/14/24 Uncollected Toxin 01:07 Date of Service: Jun 13, 2024 Billing Provider: LULÚ RODAS MD Common Visit Codes: [id number] INP/OBS CARE (HIGH) JOSEFINA YOUSIF RESIDENT Jun 14, 2024 03:52 LULÚ RODAS MD Jun 15, 2024 08:25
[2024-06-14 04:24] LABS: Basophils # (auto) 0 10 ^3/uL (0-0.2); Basophils % (auto) 0.6 % (0.0-2.0); Eosinophils # (auto) 0.5 10 ^3/uL (0-0.8); Eosinophils % (auto) 9.4 % (0.0-7.0); Hematocrit 42.2 % (41.0-53.0); Hemoglobin 14.6 g/dL (13.5-17.5); Lymphocytes # (auto) 1.7 10 ^3/uL (0.4-5.4); Lymphocytes % (auto) 29.8 % (10.0-50.0); Mean Corpuscular Hemoglobin 32.5 pg (28.0-32.0); Mean Corpuscular Hgb Conc. 34.6 g/dL (32.0-36.0); Monocytes # (auto) 0.6 10 ^3/uL (0-1.3); Monocytes % (auto) 10.2 % (0.0-12.0); Neutrophils # (auto) 2.8 10 ^3/uL (1.6-8.6); Nucleated Red Blood Cells % 0.1 %; Platelet Count (auto) 225 10^3/uL (140-450); Red Blood Cells 4.49 10^6/uL (4.5-5.90); Red Cell Distribution Width 12.9 % (11.8-14.3); White Blood Cell 5.6 10^3/uL (4.4-10.8)
[2024-06-14 04:36] LABS: Alanine Aminotransferase 29 U/L (7-40); Albumin 3.9 g/dL (3.2-4.8); Alkaline Phosphatase 51 U/L (46-116); Anion Gap 8 (5-15); Aspartate Aminotransferase 19 U/L (13-40); BUN/Creatinine Ratio 13.4 (10.0-20.0); Blood Urea Nitrogen 13 mg/dL (9-23); Calcium 8.7 mg/dL (8.7-10.4); Carbon Dioxide 23 mmol/L (20-31); Chloride 108 mmol/L (98-107); Glucose 94 mg/dL (74-106); Potassium 3.9 mmol/L (3.5-5.1); Sodium 139 mmol/L (136-145); Total Protein 6.3 g/dL (5.7-8.2)
[2024-06-14 04:44] LABS: CRP High Sensitivity 4.66 mg/dL (<1.0)
[2024-06-14 04:57] LABS: Erythrocyte Sedimentation Rate 8 mm/hr (0-20)
[2024-06-14] MEDS: PIPERACILLIN-TAZOB 3.375GM 100 ML IV SCH (06:28)
[2024-06-14 08:13] VITALS: PULSE 90; RESP 18; O2SAT 97
[2024-06-14] MEDS: MORPHINE SULFATE INJ 2 MG/ml SYRG IV PRN (08:20)
[2024-06-14] MEDS: ONDANSETRON HCL 4 MG/2 ML VIAL IV PRN (08:20)
--- NOTE | 2024-06-14 09:05 | DVHPNRES ---
Progress Note Date Seen: Jun 14, 2024 Resident Creating Document: ZAIDA MENESES RESIDENT Medical Necessity Reason Pt with a Central, PICC or Fol: No Subjective Review of Systems Jorge Shea a 33 years old male with a PMH of Crohn's disease presented to the ED with the chief complaints lower abdominal pain more towards the left since 2 days prior to admission. Patient reported pain has been sudden onset, 9/10 intensity, sharp , radiates to the left leg which worsens with the standing and improves when bending over. no specific aggravating or relieving factors but associated with bloody stools, severe nausea and vomiting without blood along with the pain. Patient does report fever, headache, chills , recent sick contacts, travel, eating unusual food. On my assessment patient denies chest pain, shortness of breath, hematemesis, palpitations and other associated symptoms patient reported his flare-up was 2 years ago, not taking any medications for Crohn's disease. PMH: Crohn's disease, PSH: benign tumor resection in the intestines Family history: Reviewed, noncontributory Social history: Lives with the family. Denies smoking, alcohol and other drug abuse Allergies: No known allergies Patient seen and examined at the bedside. Patient reported improvement in his symptoms since admission. CT abdominal pelvis showed findings suggestive of enterocolitis and inflammatory bowel disease along with hepatomegaly and diffuse hepatosteatosis. Ordered stool culture and C diff toxin. Currently on Zosyn and prednisolone 40 mg IV. Considering GI evaluation. Patient reports: Feels better Objective vital signs Vital Sign Date Time Temp Pulse Resp B/P (MAP) Pulse Ox O2 Delivery O2 Flow Rate FiO2 06/14/24 08:55 80 18 132/80 06/14/24 08:13 95 06/14/24 08:13 Room Air* 0 06/14/24 00:06 98.1 medications Current Medications Medications Dose Ordered Sig/Kathie Route Start Time Stop Time Status Last Admin Dose Admin Sodium Chloride 1,000 ml @ 60 mls/hr [id number] IV 06/13/24 21:30 06/13/24 21:30 60 MLS/HR Ondansetron HCl 4 mg Q4HP PRN IV 06/13/24 21:30 06/14/24 08:20 4 MG Acetaminophen 650 mg Q6HP PRN PO 06/13/24 21:30 Morphine Sulfate 2 mg Q4HPRN PRN IV 06/13/24 21:30 06/14/24 08:20 2 MG Nitroglycerin 0.4 mg Q5MINP PRN SL 06/13/24 21:30 Morphine Sulfate 2 mg Q30M PRN IV 06/13/24 21:30 Prednisone 40 mg DAILY PO 06/14/24 10:00 Pantoprazole Sodium 40 mg DAILY IV 06/14/24 10:00 Piperacillin Sod/ Tazobactam Sod 100 ml @ 25 mls/hr Q6HR IV 06/14/24 06:00 06/14/24 06:28 25 MLS/HR Examination Pt is lying on bed General Appearance: Alert, Oriented X3, Cooperative, mild distress HEENT: Atraumatic, Mucous membranes moist/pink Respiratory: Clear to auscultation, Normal air movement, No added sounds Cardiovascular: Regular rate, Normal S1, Normal S2, No murmurs Abdominal: diffuse lower abdominal tenderness more towards left. Active bowel sounds, Soft Extremities: No edema, Normal pulses, No tenderness/swelling Skin: No Significant rash, except past surgical scars Neuro: Normal speech, sensorimotor deficits none Psych/Mental Status: Mental status NL, Mood NL Nurse was there as sharperone during examination laboratory and microbiology Laboratory Tests 06/14/24 03:27 Test 06/14/24 03:27 Range/Units Serum Glucose 94 74-106 mg/dL Labs and/or images reviewed: Labs reviewed by me, Image(s) reviewed by me Problem List/Assessment/Plan Problem List/Assessment/Plan # Acute Crohn's disease flare-up -Prednisone 40 mg p.o. 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 Jordan, patient and nurse Plan discussed with: Patient My Orders My Orders Orders - ZAIDA MENESES RESIDENT Procedure Category Date Status Time Vitamin D, 25-Hydroxy LAB 06/14/24 In Process 07:58 Drug Screen LAB 06/14/24 Logged 07:58 Stool Bacterial CARLOS 06/14/24 Logged Culture 07:59 Stool Wbc LAB 06/14/24 Logged 07:59 Date of Service: Jun 14, 2024 Billing Provider: JANE JORDAN MD Common Visit Codes: [id number] INP/OBS CARE(HIGH) Coding Comment Comment Attending Attestation I saw and evaluated the patient. I reviewed the residents note and agree with findings and plan as documented in the residents note except as documented below. ZAIDA MENESES RESIDENT Jun 14, 2024 09:05 JANE JORDAN MD Jun 14, 2024 21:31
[2024-06-14] MEDS: PANTOPRAZOLE 40 MG/10 ML VIAL INJ IV SCH (10:00)
[2024-06-14] MEDS: predniSONE 20 MG TAB PO SCH (10:00)
[2024-06-14] MEDS: ACETAMINOPHEN 325 MG TAB PO PRN (12:24)
[2024-06-14 14:14] LABS: Urine Bacteria None Seen /hpf (None Seen)
[2024-06-14 14:32] LABS: Urine Blood Negative /uL (Negative); Urine Clarity Turbid (Clear); Urine Color Light-Yellow (Yellow); Urine Protein, UAD Negative (Negative); Urine Urobilinogen Normal (Negative); Urine WBC 1 /hpf (0 - 3)
[2024-06-14 14:43] LABS: Amphetamine Screen, Urine Neg (NEGATIVE); Barbiturate Scree,Urine Neg (NEGATIVE); Benzodiazephine Screen, Urine Neg (NEGATIVE); Cannabinoid Screen, Urine Neg (NEGATIVE); Cocaine Screen, Urine Neg (NEGATIVE); Opiate Scree,Urine Neg (NEGATIVE); Phencyclidine Screen, Urine Neg (NEGATIVE)
[2024-06-14 17:06] VITALS: BP 136/57; PULSE 65; RESP 18; TEMP 97.9; O2SAT 94
[2024-06-14] MEDS: KETOROLAC TROMETH 30 MG/ML 1ML VIAL IV PRN (17:50)
[2024-06-14 20:00] VITALS: RESP 18; O2SAT 96
[2024-06-14 21:00] VITALS: BP 112/62; PULSE 66; RESP 17; TEMP 97.8; O2SAT 92
--- NOTE | 2024-06-14 21:09 | DVHINCON2 ---
Date of service: Jun 14, [address] Silverio Reason for Consultation Abdominal pain and rectal bleeding History of Present Illness This 39-year-old with a history of Crohn's disease admitted with complaints of abdominal pain in both lower quadrants as well as some diarrhea with blood in the stool which happened about couple of days prior to admission. Pain was sharp in both lower quadrants. Entry radiating ulcer to the left leg apparently. Because of the persistent pain as well as some nausea vomiting and some bleeding he came to the emergency room and from there admitted. Currently patient has some low-grade fever also had Any unusual food ingestion no history of any antibiotics or other medication intake Patient has history of Crohn's disease for which she is had no real medications and on apparently because of the the medication that he tried apparently did not agree with him and he has been not using any medications for the last two years at least patient also had some bowel surgery for a bowel tumor when he was extremely young about 30 years ago. Apparently this was normal. CT scan in the hospital showed there was evidence of but dilation of both small and large bowel loops. No evidence of any other severe inflammation. 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 Allergies: Coded Allergies: NO KNOWN ALLERGIES (Unverified , 03/12/15) Home Meds No Active Prescriptions or Reported Meds Current Medications Current Medications Medications (Trade) Dose Ordered Sig/Kathie Route PRN Reason Start Time Stop Time Status Last Admin Sodium Chloride 1,000 ml @ 60 mls/hr [id number] IV 06/13/24 21:30 06/14/24 14:15 Potassium Chloride 100 ml @ 50 mls/hr Q2H IV 06/13/24 21:30 06/14/24 01:29 DC Ondansetron HCl (Zofran) 4 mg Q4HP PRN IV NAUSEA / VOMITING 11/21/24 21:30 06/14/24 18:03 Acetaminophen (Tylenol Tablet) 650 mg Q6HP PRN PO PAIN SCALE 1-3 OR TEMP>100.4 06/13/24 21:30 06/14/24 11:17 DC Morphine Sulfate 2 mg Q4HPRN PRN IV SEVERE PAIN (7-10 PAIN SCALE) 06/13/24 21:30 Hold 06/14/24 08:20 Nitroglycerin (Ntrostat Sublingual) 0.4 mg Q5MINP PRN SL FOR CHEST PAIN 06/13/24 21:30 Morphine Sulfate 2 mg Q30M PRN IV FOR CHEST PAIN 06/13/24 21:30 Prednisone 40 mg DAILY PO 06/14/24 10:00 06/14/24 16:14 DC 06/14/24 10:00 Pantoprazole Sodium (Protonix) 40 mg DAILY IV 06/14/24 10:00 06/14/24 10:00 Piperacillin Sod/ Tazobactam Sod 100 ml @ 25 mls/hr Q6HR IV 06/14/24 06:00 06/14/24 17:51 Acetaminophen (Tylenol Tablet) 650 mg Q4HP PRN PO MILD PAIN (1-3 PAIN SCALE) 06/14/24 11:15 06/14/24 12:24 Ketorolac Tromethamine (Toradol Injection) 15 mg Q6HPRN PRN IV SEVERE PAIN (7-10 PAIN SCALE) 06/14/24 16:15 06/19/24 16:14 06/14/24 17:50 Methylprednisolone Sodium Succinate (Solu Medrol) 40 mg DAILY IV 06/15/24 10:00 Review of Systems Noncontributory Vital Signs Vital Signs Date Time Temp Pulse Resp B/P (MAP) Pulse Ox O2 Delivery O2 Flow Rate FiO2 06/14/24 17:06 97.9 65 18 136/57 (83) 94 97.9 06/14/24 16:00 Room Air* 0 21 Physical Exam Originally built and nourished male no acute distress Vitals Lungs clear ENT examination no pallor or icterus Abdomen Soft Surgical scar in the lower abdomen in the midline Mild fullness but no tenderness no rigidity no guarding Bowel sounds normal Extremities no edema Labs/Diagnostic Data Labs Test 06/14/24 12:05 06/14/24 03:27 06/13/24 21:37 06/13/24 18:54 Range/Units Urine Color Light-yellow Yellow Urine Clarity Turbid H Clear Urine pH 5.0 5.0-9.0 Urine Specific [place] 1.020 1.001-1.035 Urine Protein Negative Negative Urine Ketones Negative Negative Urine Blood Negative Negative /uL Urine Nitrite Negative Negative Urine Bilirubin Negative Negative Urine Urobilinogen Normal Negative mg/dL Urine Leukocyte Esterase Negative Negative /uL Urine RBC 1 0 - 3 /hpf Urine WBC 1 0 - 3 /hpf Urine Squamous Epithelial Cells Few <5 /hpf Urine Uric Acid Crystals Few None Seen /hpf Urine Bacteria None seen None Seen /hpf Urine Glucose Normal Normal mg/dL Urine Opiates Screen Neg NEGATIVE Urine Fentanyl Screen Neg NEGATIVE Urine Barbiturates Screen Neg NEGATIVE Urine Phencyclidine Screen Neg NEGATIVE Urine Amphetamines Screen Neg NEGATIVE Urine Benzodiazepines Screen Neg NEGATIVE Urine Cocaine Screen Neg NEGATIVE Urine Cannabinoids Screen Neg NEGATIVE White Blood Count 5.6 # 4.4-10.8 10^3/uL Red Blood Count 4.49 L 4.5-5.90 10^6/uL Hemoglobin 14.6 13.5-17.5 g/dL Hematocrit 42.2 # 41.0-53.0 % Mean Corpuscular Volume 94.0 80.0-100.0 fL Mean Corpuscular Hemoglobin 32.5 H 28.0-32.0 pg Mean Corpuscular Hemoglobin Concent 34.6 32.0-36.0 g/dL Red Cell Distribution Width 12.9 11.8-14.3 % Platelet Count 225 140-450 10^3/uL Mean Platelet Volume 7.7 6.9-10.8 fL Neutrophils (%) (Auto) 50.0 37.0-80.0 % Lymphocytes (%) (Auto) 29.8 10.0-50.0 % Monocytes (%) (Auto) 10.2 0.0-12.0 % Eosinophils (%) (Auto) 9.4 H 0.0-7.0 % Basophils (%) (Auto) 0.6 0.0-2.0 % Neutrophils # (Auto) 2.8 1.6-8.6 10 ^3/uL Lymphocytes # (Auto) 1.7 0.4-5.4 10 ^3/uL Monocytes # (Auto) 0.6 0-1.3 10 ^3/uL Eosinophils # (Auto) 0.5 0-0.8 10 ^3/uL Basophils # (Auto) 0 0-0.2 10 ^3/uL Nucleated Red Blood Cells 0.1 % Erythrocyte Sedimentation Rate 8 0-20 mm/hr Sodium Level 139 136-145 mmol/L Potassium Level 3.9 3.5-5.1 mmol/L Chloride Level 108 H 98-107 mmol/L Carbon Dioxide Level 23 20-31 mmol/L Anion Gap 8 5-15 Blood Urea Nitrogen 13 9-23 mg/dL Creatinine 0.97 0.700-1.30 mg/dL Glomerular Filtration Rate Calc 102 >90 mL/min BUN/Creatinine Ratio 13.4 10.0-20.0 Serum Glucose 94 74-106 mg/dL Hemoglobin A1c 5.2 <5.7 % A1C Calcium Level 8.7 8.7-10.4 mg/dL Total Bilirubin 2.0 H 0.2-1.0 mg/dL Aspartate Amino Transferase (AST) 19 13-40 U/L Alanine Aminotransferase (ALT) 29 7-40 U/L Alkaline Phosphatase 51 46-116 U/L C-Reactive Protein High Sensitivity 4.66 H <1.0 mg/dL Total Protein 6.3 5.7-8.2 g/dL Albumin 3.9 3.2-4.8 g/dL Vitamin B12 Level 385 211-911 pg/mL Vitamin D 25-Hydroxy 34.8 30.0-100 ng/mL Thyroid Stimulating Hormone (TSH) 0.94 0.55-4.78 uIU/mL Influenza Type A Antigen Negative Negative Influenza Type B Antigen Negative Negative SARS-CoV-2 Antigen (Rapid) Negative NEGATIVE Prothrombin Time 11.1 9.3-11.8 sec Prothrombin Time INR 1.05 0.9-1.15 Activated Partial Thromboplast Time 28.4 24.5-34.5 SEC Lactic Acid Level 1.1 0.4-2.0 mmol/L Lipase 34 12-53 U/L Microbiology Date/Time Source Procedure Growth Status 06/13/24 19:01 Blood Blood Culture - Preliminary NO GROWTH AFTER 24 HOURS OF INCUBATION. Resulted Assessment 39-year-old male with history of Crohn's disease with complaints of abdominal pain and diarrhea with nausea and some vomiting patient has history of Crohn's last evaluation was done a few years ago apparently has had not had any medications in the past to three years at least patient had low-grade fever along with the pains Scan showed dilated small bowel and large bowel loops small no evidence of any bowel obstruction Clinical impression is Crohn's disease with possible exacerbation Possibility of any infectious type of colitis also can not be excluded Plan/Recommendation will recommend to continue with steroids PPIs and antibiotics and see the response Patient is feeling much better and almost ready to go home up as per the patient Ideally we will recommend full workup including colonoscopy and evaluation of the small bowel etc. to ascertain the extent of the Crohn's disease if possible Since patient is eager to go home will recommend a complete evaluation as an outpatient when better including evaluation of the colon and other workup as necessary Thank you Dr. Michelle Plan discussed with: Patient FELIX MICHELLE MD Jun 14, 2024 21:09
[2024-06-15] VITALS (7 sets, daily range): BP systolic 103–120; BP diastolic 56–73; PULSE 60–69; RESP 16–19; TEMP 96.8–98.5; O2SAT 93–98
[2024-06-15 07:07] LABS: Anion Gap 8 (5-15); Carbon Dioxide 25 mmol/L (20-31); Chloride 105 mmol/L (98-107); Potassium 4.3 mmol/L (3.5-5.1); Sodium 138 mmol/L (136-145)
[2024-06-15 07:08] LABS: Calcium 9.5 mg/dL (8.7-10.4)
[2024-06-15 07:13] LABS: Blood Urea Nitrogen 10 mg/dL (9-23); Glucose 97 mg/dL (74-106)
[2024-06-15 07:15] LABS: Basophils # (auto) 0 10 ^3/uL (0-0.2); Basophils % (auto) 0.3 % (0.0-2.0); Eosinophils # (auto) 0.1 10 ^3/uL (0-0.8); Eosinophils % (auto) 1.5 % (0.0-7.0); Hematocrit 41.5 % (41.0-53.0); Hemoglobin 14.6 g/dL (13.5-17.5); Lymphocytes # (auto) 1.6 10 ^3/uL (0.4-5.4); Lymphocytes % (auto) 19.3 % (10.0-50.0); Mean Corpuscular Hemoglobin 32.5 pg (28.0-32.0); Mean Corpuscular Hgb Conc. 35.2 g/dL (32.0-36.0); Mean Corpuscular Volume 92.2 fL (80.0-100.0); Monocytes # (auto) 0.6 10 ^3/uL (0-1.3); Monocytes % (auto) 7.2 % (0.0-12.0); Neutrophils % (auto) 71.7 % (37.0-80.0); Nucleated Red Blood Cells % 0.1 %; Platelet Count (auto) 255 10^3/uL (140-450); Red Cell Distribution Width 12.6 % (11.8-14.3); White Blood Cell 8.4 10^3/uL (4.4-10.8)
[2024-06-15] MEDS: methylPREDNISolone SOD SUCC 40 MG/ML VL IV SCH (10:05)
[2024-06-15] MEDS ORDERED: ACET-1882 PO (15:50)
[2024-06-15] MEDS ORDERED: MET500T PO (15:50)
[2024-06-15] MEDS ORDERED: CIPR500T4 PO (15:50)
[2024-06-15] MEDS ORDERED: PANT40T PO (15:50)
[2024-06-15] MEDS ORDERED: METH4PAK PO (15:50)
--- NOTE | 2024-06-15 17:03 | DVHPN2 ---
Progress Note - Dictate Date Seen: Jun 15, 2024 Medical Necessity Reason Pt with a Central, PICC or Fol: No Subjective Patient is feeling much better no diarrhea no abdominal pains no other symptom and wants to go home Tolerated diet well No fever or other systemic symptoms vital signs Vital Sign Date Time Temp Pulse Resp B/P (MAP) Pulse Ox O2 Delivery O2 Flow Rate FiO2 06/15/24 16:46 98.2 65 18 106/66 (79) 93 98.2 06/15/24 08:00 Room Air* 0 21 Total Intake and Output 06/14/24 06/14/24 06/15/24 15:00 23:00 07:00 Intake Total 25 ml 0 ml 400 ml Output Total 0 ml Balance 25 ml 0 ml 400 ml medications Current Medications Medications Dose Ordered Sig/Kathie Route Start Time Stop Time Status Last Admin Dose Admin Sodium Chloride 1,000 ml @ 60 mls/hr [id number] IV 06/13/24 21:30 06/15/24 05:59 60 MLS/HR Ondansetron HCl 4 mg Q4HP PRN IV 06/13/24 21:30 06/14/24 18:03 4 MG Morphine Sulfate 2 mg Q4HPRN PRN IV 06/13/24 21:30 Hold 06/14/24 08:20 2 MG Nitroglycerin 0.4 mg Q5MINP PRN SL 06/13/24 21:30 Morphine Sulfate 2 mg Q30M PRN IV 06/13/24 21:30 Pantoprazole Sodium 40 mg DAILY IV 06/14/24 10:00 06/15/24 10:05 40 MG Piperacillin Sod/ Tazobactam Sod 100 ml @ 25 mls/hr Q6HR IV 06/14/24 06:00 06/15/24 12:52 25 MLS/HR Acetaminophen 650 mg Q4HP PRN PO 06/14/24 11:15 06/14/24 12:24 650 MG Ketorolac Tromethamine 15 mg Q6HPRN PRN IV 06/14/24 16:15 06/19/24 16:14 06/14/24 17:50 15 MG Methylprednisolone Sodium Succinate 40 mg DAILY IV 06/15/24 10:00 06/15/24 10:05 40 MG objective Abdomen soft nontender no masses bowel sounds normal laboratory and microbiology Laboratory Tests 06/15/24 05:34 Test 06/15/24 05:34 Range/Units Serum Glucose 97 74-106 mg/dL Assessment/Plan 39-year-old male with history of Crohn's disease with complaints of abdominal pain and diarrhea with nausea and some vomiting patient has history of Crohn's last evaluation was done a few years ago apparently has had not had any medications in the past to three years at least patient had low-grade fever along with the pains Scan showed dilated small bowel and large bowel loops small no evidence of any bowel obstruction Clinical impression is Crohn's disease with possible exacerbation Possibility of any infectious type of colitis also can not be excluded Patient is clinically better today with improved symptoms physical examination shows normal abdomen without any tenderness or rigidity Patient is eager to go home and tolerated diet well I want any workup as inpatient With a fine descending home and follow up closely as an outpatient for further evaluation and treatment as necessary Thank you Dr. Michelle Plan discussed with: Patient FELIX MICHELLE MD Jun 15, 2024 17:03
--- NOTE | 2024-06-15 22:12 | DVHDSRES ---
Discharge Summary Date of Admission Resident Creating Document: BERNARDO MORILLO RESIDENT Jun 13, 2024 at 21:29 Date of Discharge: Jun 15, 2024 Labs/Diagnostic Data: Laboratory Results Test 06/15/24 05:34 06/14/24 12:05 06/14/24 03:27 06/13/24 21:37 White Blood Count 8.4 10^3/uL (4.4-10.8) Red Blood Count 4.50 10^6/uL (4.5-5.90) Hemoglobin 14.6 g/dL (13.5-17.5) Hematocrit 41.5 % (41.0-53.0) Mean Corpuscular Volume 92.2 fL (80.0-100.0) Mean Corpuscular Hemoglobin 32.5 pg (28.0-32.0) Mean Corpuscular Hemoglobin Concent 35.2 g/dL (32.0-36.0) Red Cell Distribution Width 12.6 % (11.8-14.3) Platelet Count 255 10^3/uL (140-450) Mean Platelet Volume 7.7 fL (6.9-10.8) Neutrophils (%) (Auto) 71.7 % (37.0-80.0) Lymphocytes (%) (Auto) 19.3 % (10.0-50.0) Monocytes (%) (Auto) 7.2 % (0.0-12.0) Eosinophils (%) (Auto) 1.5 % (0.0-7.0) Basophils (%) (Auto) 0.3 % (0.0-2.0) Neutrophils # (Auto) 6.0 10 ^3/uL (1.6-8.6) Lymphocytes # (Auto) 1.6 10 ^3/uL (0.4-5.4) Monocytes # (Auto) 0.6 10 ^3/uL (0-1.3) Eosinophils # (Auto) 0.1 10 ^3/uL (0-0.8) Basophils # (Auto) 0 10 ^3/uL (0-0.2) Nucleated Red Blood Cells 0.1 % Sodium Level 138 mmol/L (136-145) Potassium Level 4.3 mmol/L (3.5-5.1) Chloride Level 105 mmol/L (98-107) Carbon Dioxide Level 25 mmol/L (20-31) Anion Gap 8 (5-15) Blood Urea Nitrogen 10 mg/dL (9-23) Creatinine 0.91 mg/dL (0.700-1.30) Glomerular Filtration Rate Calc 111 mL/min (>90) BUN/Creatinine Ratio 11.0 (10.0-20.0) Serum Glucose 97 mg/dL (74-106) Calcium Level 9.5 mg/dL (8.7-10.4) Urine Color Light-yellow (Yellow) Urine Clarity Turbid (Clear) Urine pH 5.0 (5.0-9.0) Urine Specific Plato 1.020 (1.001-1.035) Urine Protein Negative (Negative) Urine Ketones Negative (Negative) Urine Blood Negative /uL (Negative) Urine Nitrite Negative (Negative) Urine Bilirubin Negative (Negative) Urine Urobilinogen Normal mg/dL (Negative) Urine Leukocyte Esterase Negative /uL (Negative) Urine RBC 1 /hpf (0 - 3) Urine WBC 1 /hpf (0 - 3) Urine Squamous Epithelial Cells Few /hpf (<5) Urine Uric Acid Crystals Few /hpf (None Seen) Urine Bacteria None seen /hpf (None Seen) Urine Glucose Normal mg/dL (Normal) Urine Opiates Screen Neg (NEGATIVE) Urine Fentanyl Screen Neg (NEGATIVE) Urine Barbiturates Screen Neg (NEGATIVE) Urine Phencyclidine Screen Neg (NEGATIVE) Urine Amphetamines Screen Neg (NEGATIVE) Urine Benzodiazepines Screen Neg (NEGATIVE) Urine Cocaine Screen Neg (NEGATIVE) Urine Cannabinoids Screen Neg (NEGATIVE) Erythrocyte Sedimentation Rate 8 mm/hr (0-20) Hemoglobin A1c 5.2 % A1C (<5.7) Total Bilirubin 2.0 mg/dL (0.2-1.0) Aspartate Amino Transferase (AST) 19 U/L (13-40) Alanine Aminotransferase (ALT) 29 U/L (7-40) Alkaline Phosphatase 51 U/L (46-116) C-Reactive Protein High Sensitivity 4.66 mg/dL (<1.0) Total Protein 6.3 g/dL (5.7-8.2) Albumin 3.9 g/dL (3.2-4.8) Vitamin B12 Level 385 pg/mL (211-911) Vitamin D 25-Hydroxy 34.8 ng/mL (30.0-100) Thyroid Stimulating Hormone (TSH) 0.94 uIU/mL (0.55-4.78) Influenza Type A Antigen Negative (Negative) Influenza Type B Antigen Negative (Negative) SARS-CoV-2 Antigen (Rapid) Negative (NEGATIVE) Test 06/13/24 18:54 Prothrombin Time 11.1 sec (9.3-11.8) Prothrombin Time INR 1.05 (0.9-1.15) Activated Partial Thromboplast Time 28.4 SEC (24.5-34.5) Lactic Acid Level 1.1 mmol/L (0.4-2.0) Lipase 34 U/L (12-53) Other Laboratory Tests 06/15/24 05:34 Brief Hx & Hospital Course: Jose Shea is a 33 years old male patient who presents to the ED with chief complaint of sudden, sharp, left lower abdominal quadrant pain intensity 10 associated with bloody diarrhea 2 days prior to admission. Patient has history of Crohn disease, has not had a flare-up in past two years, is not taking any medication for maintenance of Crohn disease. Denies fever, headache, chills, recent sick contacts, travel, eating unusual food, palpitation, syncope, chest pain, dyspnea, hematemesis, palpitations and other associated symptoms Past medical history: Crohn's disease, Surgical history: benign tumor resection in the intestines Family history: Noncontributory Social history: Lives with the family. Denies smoking, alcohol and other drug abuse Allergies: No known allergies Home medication: Denies (previously was on prednisone, discontinued medication for approximately two years) Brief hospital course: Crohn's disease exacerbation symptomatic by lower left quadrant abdominal pain and bloody diarrhea, requiring bowel rest, IV fluids, empiric IV antibiotic (Zosyn) and IV steroids. GI specialist evaluated the patient who can not rule out gastroenteritis, probable diagnosis is acute Crohn's flare-up, indicated to continue with antibiotics and steroids, follow up as outpatient for eventual panendoscopy to evaluate severity of Crohn's disease. Patient hemodynamically stable, asymptomatic, bloody diarrhea resolved, tolerating diet, in condition to be discharged home. Was granted under optimal medical therapy (prednisone and p.o. antibiotics that include ciprofloxacin and metronidazole), gave her advice on healthy lifestyle habits, and follow-up as outpatient with PCP and GI specialist for eventual panendoscopies. 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 #Non-compliance Goals of care discussed with the patient for more than 27 minutes: Full code status Case management discussed with Dr. Jordan, patient and nurse Physical examination Patient lying in bed, in no acute distress General: Lucid, afebrile, mucosae are moist Cardiovascular: Normal S1 and S2. No murmurs, gallops or rubs Respiratory: Normal ventilation mechanics. Clear lung sounds on auscultation Abdomen: Soft, nontender, no organomegaly, normal bowel sounds MSK/skin: Mobilizes 4 limbs. Skin is dry and warm Neurological: Oriented in 3 spheres. No motor no sensitive deficits. Pupils are isocoric and reactive Operations or Procedures CLINICAL HISTORY: abd pain, fever, h/o chrons TECHNIQUE: CT of the abdomen and pelvis was performed with intravenous contrast. This exam was performed according to our departmental dose optimization program. Up-to-date CT equipment and radiation dose reduction techniques are utilized as appropriate. [[employer]imetrics Exposure Report] WID: COMPARISON: None FINDINGS: Lower Thorax: Unremarkable. Liver and Biliary system: Mild hepatomegaly measuring 19 cm craniocaudal with diffuse hepatic steatosis. Otherwise unremarkable. Spleen: Unremarkable. Adrenal Glands and Kidneys: Unremarkable. Pancreas and Retroperitoneum: Unremarkable. Aorta and Major Vessels: Aortoiliac vessels are patent and normal caliber. Bowel, Mesentery and Peritoneal space: The small and large bowel loops are normal in caliber there are scattered fluid-filled small bowel loops and proximal large bowel. Mucosal enhancement of scattered small bowel loops and the duodenum. There is no free air or loculated fluid collection. Pelvis: Mild prostatomegaly. Otherwise unremarkable pelvis. Abdominal wall and Osseous Structures: Small fat containing left inguinal hernia. There is a small intramuscular lipoma in the right piriformis muscle. Multilevel lower thoracic and lumbar spondylosis. No destructive osseous lesion. IMPRESSION: 1. Scattered fluid-filled small and proximal large bowel loops likely related to enterocolitis. 2. Mucosal enhancement of scattered small bowel loops and the duodenal likely infectious or inflammatory bowel disease. 3. Mild prostatomegaly. 4. Mild hepatomegaly with diffuse hepatic steatosis. 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 #Non-compliance Discharge Disposition: Home SNF Discharge Will this Physician continue t: No Discharge Instruct/Medications Diet: See Comment Diet comment: For toneyn's disease Activity: No Restrictions, As Tolerated Follow Up/Referral: PCP GI specialist Medications: Per EMR Discharge Statement: "Patient was advised to return to the ER or call 911 if any headaches, dizziness, shortness of breath, chest pain, abdominal pain, bleeding, fevers, or worsening of medical condition. Patient was counseled about treatment plan, medications, possible side effects, patientverbalized understanding. All questions were answered to the best of my ability. This discharge took greater then 30 minutes in planning, reviewing documentation, counseling the patient, and discussing with other team members." ASSESSMENT ASSESSMENT Assessment Chrohn's exacerbation Date of Service: Jun 16, 2024 Billing Provider: JANE JORDAN MD Common Visit Codes: 84787-OBN/OBS DISCH DAY >30min BERNARDO MORILLO RESIDENT Jun 15, 2024 22:12 JANE JORDAN MD Jun 16, 2024 21:57
[2024-06-17 16:06] LABS: Anti-Centromere B Antibody <0.2 AI (0.0-0.9); Anti-Jo-1 Antibody <0.2 AI (0.0-0.9); Anti-dsDNA Antibody <1 IU/mL (0-9); Antichromatin Antibody <0.2 AI (0.0-0.9); Antiscleroderma-70 Antibody <0.2 AI (0.0-0.9); RNP Antibody <0.2 AI (0.0-0.9); Sjogren's Anti-SS-A Antibody <0.2 AI (0.0-0.9); Sjogren's Anti-SS-B Antibody <0.2 AI (0.0-0.9); Smith Antibody <0.2 AI (0.0-0.9)
== END 2024-06-15 17:20 | disposition home or self-care (01) | DRG 387 ==
LOC: ER 18:20 → OVERFLOW 21:29 → WEST WING 06-14 17:49
PROVIDERS: ADMIT Student in an Organized Health Care Education/Training Program; ATTEND Student in an Organized Health Care Education/Training Program
DX: K50.911 Crohn's disease, unspecified, with rectal bleeding (principal); E66.9 Obesity, unspecified; K52.9 Noninfective gastroenteritis and colitis, unspecified; Z20.822 Contact with and (suspected) exposure to COVID-19; Z83.3 Family history of diabetes mellitus; Z82.49 Family history of ischemic heart disease and other diseases of the circulatory system; Z68.23 Body mass index [BMI] 23.0-23.9, adult; Z79.899 Other long term (current) drug therapy; Z91.199 Patient's noncompliance with other medical treatment and regimen due to unspecified reason
CPT/HCPCS: 36415; 74177; 80048; 80053; 80307; 81001; 82306; 82607; 83036; 83516; 83605; 83690; 84443; 85025; 85610; 85652; 85730; 86141; 86225; 86235; 86850; 86900; 86901; 87040; 87426; 87804; 99291; G0378; J1885; J2405; J2470; J2543; J3480